=== PATIENT | male | born 1945 | race Caucasian/White ===

== ENCOUNTER 2016-11-10 11:12 | Outpatient (CLI) | payer MEDICARE, OTHER ==
[2016-11-10 18:11] LABS: BASOPHILS % (AUTO) 0.6 %; EOSINOPHILS # (AUTO) 0.1 10^3/uL (0.0-0.7); EOSINOPHILS % (AUTO) 2.1 %; HCT - HEMATOCRIT 45.5 % (42.0-52.0); HGB - HEMOGLOBIN 15.4 g/dL (14.0-18.0); LYMPHOCYTES # (AUTO) 1.3 10^3/uL (1.5-3.5); LYMPHOCYTES % (AUTO) 19.3 %; MEAN CORPUSCULAR HEMOGLOBIN 31.4 pg (27.0-31.0); MEAN CORPUSCULAR HGB CONC 33.9 g/dL (32.0-36.0); MEAN CORPUSCULAR VOLUME 92.4 fL (80.0-94.0); MEAN PLATELET VOLUME 8.7 fL (7.4-11.4); MONOCYTES # (AUTO) 0.7 10^3/uL (0.0-1.0); MONOCYTES % (AUTO) 10.4 %; NEUTROPHILS # (AUTO) 4.5 10^3/uL (1.5-6.6); NEUTROPHILS % (AUTO) 67.6 %; NUCLEATED RED BLOOD CELLS AUTO 0.1 /100WBC; RED BLOOD COUNT 4.93 10^6/uL (4.70-6.10); RED CELL DISTRIBUTION WIDTH 12.6 % (12.0-15.0); UNCORRECTED WHITE BLOOD COUNT 6.7 x10^3/uL; WHITE BLOOD COUNT 6.7 x10^3/uL (4.8-10.8)
[2016-11-10 18:57] LABS: IRON 131 ug/dL (45-182); TOTAL IRON BINDING CAPACITY 371 ug/dL (250-450); TRANSFERRIN 265 mg/dL (180-329)
== END 2016-11-10 11:13 | disposition home or self-care (01) ==
LOC: LAB.S 11:12
PROVIDERS: ATTEND Internal Medicine
DX: D50.0 Iron deficiency anemia secondary to blood loss (chronic) (principal)
CPT/HCPCS: 36415; 82728; 83540; 84466; 85025

== ENCOUNTER 2020-08-30 10:30 | Outpatient (CLI) | payer MEDICARE, OTHER | END 2020-08-30 23:59 | disposition home or self-care (01) | LOC: COV 10:30 | PROVIDERS: ATTEND Orthopaedic Surgery Orthopaedic Trauma | DX: Z01.812 Encounter for preprocedural laboratory examination (principal); M16.11 Unilateral primary osteoarthritis, right hip; Z20.822 Contact with and (suspected) exposure to COVID-19 ==

== ENCOUNTER 2023-01-09 05:00 | Outpatient (CLI) | payer MEDICARE, OTHER | END 2023-01-09 05:01 | disposition critical access hospital (66) | LOC: EMS 05:00 | DX: R07.9 Chest pain, unspecified (principal); R05.9 Cough, unspecified; R09.3 Abnormal sputum | CPT/HCPCS: A0425; A0427 ==

== ENCOUNTER 2023-01-09 05:28 | Emergency (ER) | payer MEDICARE, OTHER ==
--- NOTE | 2023-01-09 05:45 | ED Physician Documentation ---
History of Present Illness - Stated complaint Stated Complaint: CP - History obtained from History obtained from: Patient, EMS - Additonal information Additional information: 77yM with pmh [place] s/p LAD stent [facility] ([address] Reji Triana) p/w chest pain starting at 3:30am, worse with inspiration and movement, not improved with sublingual nitro. patient also endorses 2 weeks of uri symptoms progressing to chest congestion with cough productive of green sputum. he did have fever but states it resolved a couple days ago. Review of Systems Constitutional: reports: Fatigue. denies: Fever Nose: reports: Rhinorrhea / runny nose, Congestion Cardiac: reports: Chest pain / pressure Respiratory: reports: Cough GI: denies: Abdominal Pain, Nausea PD PAST MEDICAL HISTORY - Present Medications Home Medications: Ambulatory Orders Medication Instructions Recorded Confirmed Aspirin 325 mg PO DAILY 08/30/18 08/30/18 Latanoprost 0.005% Ophth Drops 1 drops EACHEYE DAILY 08/30/18 08/30/18 [Xalatan Ophth Drops] Losartan Potassium [Cozaar] 100 mg PO DAILY 08/30/18 08/30/18 Simvastatin 1 tab PO DAILY 08/30/18 08/30/18 hydroCHLOROthiazide 1 tab PO DAILY 08/30/18 08/30/18 [Hydrochlorothiazide] metFORMIN [Glucophage] 500 mg PO BIDWM 08/30/18 08/30/18 Amox/Clav 875/125 [Augmentin 1 tablet PO Q12H 7 Days #14 tablet 01/09/23 875/125 Tab] Azithromycin [Zithromax Tri-Tae] 500 mg PO QDAC 5 Days #6 tablet 01/09/23 - Allergies Allergies/Adverse Reactions: Allergies Allergy/AdvReac Type Severity Reaction Status Date / Time No Known Drug Allergies Allergy Verified 08/30/18 16:03 PD ED PE NORMAL - Vitals Vital signs reviewed: Yes - General General: Alert and oriented X 3, No acute distress, Well developed/nourished - HEENT HEENT: Atraumatic - Neck Neck: Supple, no meningeal sign - Cardiac Cardiac: RRR - Respiratory Respiratory: No respiratory distress, Clear bilaterally - Abdomen Abdomen: Non tender, Non distended - Derm Derm: Normal color, Warm and dry Results - Vitals Vitals: Vital Signs - 24 hr 01/09/23 01/09/23 01/09/23 05:40 06:50 07:18 Temperature 36.1 C L Heart Rate 78 78 78 Respiratory 16 16 17 Rate Blood Pressure 128/62 128/62 135/66 H O2 Saturation 100 96 96 Oxygen O2 Source Room air - EKG (time done) 0532 EKG releavant findings:: EKG personally interpreted by author of this note. Relevant findings are: Rate: Rate (enter#) (85) Rhythm: NSR [place]: Normal Intervals: Normal [place] QRS: Normal Ischemia: Normal ST segments, Q waves (inferior leads) - Labs Labs: Laboratory Tests 01/09/23 01/09/23 01/09/23 05:46 05:46 07:07 WBC 13.8 H RBC 4.53 L Hgb 13.6 L Hct 42.5 MCV 93.8 MCH 30.0 MCHC 32.0 RDW 13.0 Plt Count 264 MPV 8.9 Neut # (Auto) 11.7 H Lymph # (Auto) 0.8 L [place] # (Auto) 1.1 H Eos # (Auto) 0.1 Baso # (Auto) 0.1 Absolute Nucleated RBC 0.00 Nucleated RBC % 0.0 Sodium 137 Potassium 3.9 Chloride 103 Carbon Dioxide 28 Anion Gap 6.0 BUN 18 Creatinine 1.0 Estimated GFR (MDRD) 72 L Glucose 130 H Calcium 9.5 Total Bilirubin 0.4 AST 18 ALT 14 Alkaline Phosphatase 75 Troponin I High Sens 4.6 5.3 Total Protein 6.6 Albumin 3.6 Globulin 3.0 Albumin/Globulin Ratio 1.2 Lipase 49 PD Medical Decision Making - ED course ED course: 77-year-old man with history of coronary artery disease status post LAD stent presents with atypical chest pain starting at 3:30 AM upon waking, as well as URI symptoms for the past 2 weeks with productive cough and chest congestion. CBC, abdominal panel, troponin, EKG, chest x-ray ordered. labwork remarkable for leukocytosis 13.6. two sets of troponins negative. CXR showed LLL pneumonia. Electronic prescription sent to pharmacy. Return precautions given. Plan to follow-up with primary care provider. Departure - Departure Disposition: 01 Home, Self Care Clinical Impression: Pneumonia Condition: Stable Instructions: ED Pneumonia Adult Prescriptions: Amox/Clav 875/125 [Augmentin 875/125 Tab] 1 tablet PO Q12H 7 Days #14 tablet Azithromycin [Zithromax Tri-Tae] 500 mg PO QDAC 5 Days #6 tablet Comments: You were seen in the emergency department for Pneumonia. Electronic prescription sent to [facility] in [place]. For antibiotics. Please follow-up with your primary care provider and return to the emergency department if you have any new or worsening symptoms or other concerns. Forms: PCP List
[2023-01-09 06:06] LABS: BASOPHILS # (AUTO) 0.1 10^3/uL (0.0-0.1); BASOPHILS % (AUTO) 0.5 %; EOSINOPHILS # (AUTO) 0.1 10^3/uL (0.0-0.7); EOSINOPHILS % (AUTO) 0.9 %; HCT - HEMATOCRIT 42.5 % (42.0-52.0); HGB - HEMOGLOBIN 13.6 g/dL (14.0-18.0); LYMPHOCYTES # (AUTO) 0.8 10^3/uL (1.5-3.5); LYMPHOCYTES % (AUTO) 5.5 %; MEAN CORPUSCULAR VOLUME 93.8 fL (80.0-94.0); MEAN PLATELET VOLUME 8.9 fL (7.4-11.4); MONOCYTES # (AUTO) 1.1 10^3/uL (0.0-1.0); NEUTROPHILS # (AUTO) 11.7 10^3/uL (1.5-6.6); NEUTROPHILS % (AUTO) 84.7 %; PLT - PLATELET COUNT 264 10^3/uL (130-450); RED BLOOD COUNT 4.53 10^6/uL (4.70-6.10); WHITE BLOOD COUNT 13.8 x10^3/uL (4.8-10.8)
[2023-01-09 06:15] LABS: ALBUMIN 3.6 g/dL (3.2-5.5); ALBUMIN/GLOBULIN RATIO 1.2 (1.0-2.2); BILIRUBIN,TOTAL 0.4 mg/dL (0.2-1.0); CALCIUM 9.5 mg/dL (8.5-10.3); POTASSIUM 3.9 mmol/L (3.5-4.5); TOTAL PROTEIN 6.6 g/dL (6.4-8.9)
[2023-01-09 06:21] LABS: TROPONIN I HIGH SENSITIVITY 4.6 ng/L (2.3-19.7)
[2023-01-09 06:55] VITALS: O2SAT 96
[2023-01-09] MEDS ORDERED: AZITHROMYCIN INJ 500 MG in SODIUM CHLORIDE 0.9% 250 ML IV STA (08:00)
[2023-01-09] MEDS ORDERED: cefTRIAXone 2 GM in SODIUM CHLORIDE 0.9% MINIBAG 100 ML IV STA (08:00)
--- NOTE | 2023-01-09 08:35 | XRAY Report ---
PROCEDURE: Chest 1 View X-Ray INDICATIONS: Chest Pain TECHNIQUE: One view of the chest was acquired. COMPARISON: CT abdomen and pelvis, 05/23/2015. FINDINGS: Surgical changes and devices: None. Lungs and pleura: Bibasilar infiltrate or atelectasis. No pleural effusions or pneumothorax. Lungs are clear. Mediastinum: Mediastinal contours appear normal. Heart size is normal. Suspect a moderate size hiat al hernia. Bones and chest wall: No suspicious bony lesions. Overlying soft tissues appear unremarkable. IMPRESSION: Bibasilar infiltrates or atelectasis. Findings are concordant with preliminary interpretation provided by [facility]. Reviewed by: Marcela Velázquez MD on 01/09/2023 8:33 AM PST Approved by: Marcela Velázquez MD on 01/09/2023 8:33 AM PST Station ID: [id number]
[2023-01-09 10:29] VITALS: BP 127/63
== END 2023-01-09 10:20 | disposition home or self-care (01) ==
LOC: EDUNIT# → ED 05:28
DX: J18.9 Pneumonia, unspecified organism (principal)
CPT/HCPCS: 36415; 80053; 83690; 84484; 85025; 93005; 96365; 96367; 99284

== ENCOUNTER 2023-07-29 11:07 | Emergency (ER) | payer MEDICARE, OTHER ==
[2023-07-29 11:30] LABS: BASOPHILS % (AUTO) 0.6 %; EOSINOPHILS # (AUTO) 0.1 10^3/uL (0.0-0.7); EOSINOPHILS % (AUTO) 2.2 %; HCT - HEMATOCRIT 41.9 % (42.0-52.0); HGB - HEMOGLOBIN 13.7 g/dL (14.0-18.0); LYMPHOCYTES # (AUTO) 1.4 10^3/uL (1.5-3.5); LYMPHOCYTES % (AUTO) 22.2 %; MEAN CORPUSCULAR HEMOGLOBIN 29.7 pg (27.0-31.0); MEAN CORPUSCULAR HGB CONC 32.7 g/dL (32.0-36.0); MEAN CORPUSCULAR VOLUME 90.7 fL (80.0-94.0); MEAN PLATELET VOLUME 9.1 fL (7.4-11.4); MONOCYTES # (AUTO) 0.8 10^3/uL (0.0-1.0); MONOCYTES % (AUTO) 12.8 %; PLT - PLATELET COUNT 225 10^3/uL (130-450); RED BLOOD COUNT 4.62 10^6/uL (4.70-6.10); RED CELL DISTRIBUTION WIDTH 12.5 % (12.0-15.0); WHITE BLOOD COUNT 6.4 x10^3/uL (4.8-10.8)
[2023-07-29 11:46] LABS: ALBUMIN/GLOBULIN RATIO 1.4 (1.0-2.2); BILIRUBIN,TOTAL 0.6 mg/dL (0.2-1.0); CALCIUM 9.9 mg/dL (8.5-10.3); POTASSIUM 3.6 mmol/L (3.5-4.5); TOTAL PROTEIN 6.9 g/dL (6.4-8.9)
[2023-07-29 11:49] LABS: TROPONIN I HIGH SENSITIVITY 4.6 ng/L (2.3-19.7)
--- NOTE | 2023-07-29 12:00 | XRAY Report ---
PROCEDURE: Chest 1V INDICATIONS: Chest pain TECHNIQUE: One view of the chest was acquired. COMPARISON: Chest x-ray 01/09/2023 FINDINGS: Surgical changes and devices: None. Lungs and pleura: No pleural effusions or pneumothorax. Lungs are clear. Mediastinum: Mediastinal contours appear normal. Heart size is enlarged. Bones and chest wall: No suspicious bony lesions. Overlying soft tissues appear unremarkable. IMPRESSION: No acute cardiopulmonary process. Reviewed by: Damari Rubio MD on 07/29/2023 11:58 AM PDT Approved by: Damari Rubio MD on 07/29/2023 11:58 AM PDT Station ID: [id number]
--- NOTE | 2023-07-29 12:09 | ED Physician Documentation ---
PD HPI CHEST PAIN - Stated complaint Stated Complaint: CHEST PX - Chief complaint Chief Complaint: Cardiac - History obtained from History obtained from: Patient, Family - History of Present Illness Timing - onset: How many hours ago (2) Pain level max: 3 Pain level now: 3 Quality: Pressure, Tightness Location: Substernal Radiation: No: Jaw, Neck, Back, Abdominal, Left upper extremity, Right upper extremity Improved by: Nothing Worsened by: No: Exertion, Inspiration, Movement Associated symptoms: No: Shortness of air, Diaphoresis, Nausea, Vomiting, General Weakness, Palpitations - Additional information Additional information: Patient is a 77-year-old male who presents to the emergency department with chest pain that started this morning while having a "heated conversation" with his . He states they are under a large amount of stress as they are refinishing the floors in their home. He states that the pain gradually builds over about 10 minutes, he took nitroglycerin and aspirin, pain subsided for a few minutes, then returned. He states that the pain has now resolved. Entire episode lasted about 30 to 40 minutes. Tamiment like a pressure. No nausea or vomiting. He states he has a history of stents to the LAD in 2010. He recently underwent a hiatal hernia repair at the [facility]. The symptoms did not change with exertion, inspiration. Review of Systems Constitutional: denies: Fever, Chills Respiratory: denies: Cough GI: denies: Nausea, Vomiting, Diarrhea Musculoskeletal: denies: Neck pain, Back pain Neurologic: denies: Headache PD PAST MEDICAL HISTORY - Past Medical History Past Medical History: Yes Cardiovascular: Hypertension, High cholesterol, [place] Respiratory: COPD Endocrine/Autoimmune: None GI: Ulcers, Hiatal hernia : Other Psych: None Musculoskeletal: None Derm: None - Past Surgical History Past Surgical History: Yes General: Hiatal hernia repair Ortho: Hip replacement Cardiovascular: Coronary stent - Present Medications Home Medications: Ambulatory Orders Medication Instructions Recorded Confirmed Aspirin 325 mg PO DAILY 08/30/18 08/30/18 Latanoprost 0.005% Ophth Drops 1 drops EACHEYE DAILY 08/30/18 08/30/18 [Xalatan Ophth Drops] Losartan Potassium [Cozaar] 100 mg PO DAILY 08/30/18 08/30/18 Simvastatin 1 tab PO DAILY 08/30/18 08/30/18 hydroCHLOROthiazide 1 tab PO DAILY 08/30/18 08/30/18 [Hydrochlorothiazide] metFORMIN [Glucophage] 500 mg PO BIDWM 08/30/18 08/30/18 Amox/Clav 875/125 [Augmentin 1 tablet PO Q12H 7 Days #14 tablet 01/09/23 875/125 Tab] Azithromycin [Zithromax Tri-Tae] 500 mg PO QDAC 5 Days #6 tablet 01/09/23 - Allergies Allergies/Adverse Reactions: Allergies Allergy/AdvReac Type Severity Reaction Status Date / Time No Known Drug Allergies Allergy Verified 07/29/23 11:11 - Social History Does the pt smoke?: No Smoking Status: Never smoker Does the pt drink ETOH?: Yes ETOH Use: Liquor Does the pt have substance abuse?: Yes Substance Use and Type: Marijuana - Immunizations Immunizations are current?: Yes - POLST Patient has POLST: No PD ED PE NORMAL - Vitals Vital signs reviewed: Yes - General General: Alert and oriented X 3, No acute distress - HEENT HEENT: Moist mucous membranes - Neck Neck: Supple, no meningeal sign - Cardiac Cardiac: RRR, Strong equal pulses - Respiratory Respiratory: No respiratory distress, Clear bilaterally - Abdomen Abdomen: Soft, Non tender, Non distended - Derm Derm: Warm and dry - Extremities Extremities: No edema, No calf tenderness / cord - Neuro Neuro: Alert and oriented X 3 - Psych Psych: Normal mood, Normal affect Results - Vitals Vitals: Vital Signs - 24 hr 07/29/23 07/29/23 07/29/23 11:11 12:16 12:46 Temperature 36.4 C L Heart Rate 52 L 56 L 50 L Respiratory 16 13 12 Rate Blood Pressure 197/74 H 150/79 H 155/76 H O2 Saturation 99 96 97 07/29/23 07/29/23 07/29/23 13:16 13:46 14:16 Temperature Heart Rate 51 L 49 L 49 L Respiratory 17 17 14 Rate Blood Pressure 127/89 H 135/73 H 150/68 H O2 Saturation 97 98 97 07/29/23 14:30 Temperature Heart Rate 48 L Respiratory 16 Rate Blood Pressure 150/73 H O2 Saturation 98 Oxygen O2 Source Room air - EKG (time done) 1119 EKG releavant findings:: EKG personally interpreted by author of this note. Relevant findings are: Rate: Rate (enter#) (60) Rhythm: NSR [place]: Normal Intervals: Normal [place] QRS: Normal Ischemia: Normal ST segments, Q waves (V1-2, III, aVF) - Labs Labs: Laboratory Tests 07/29/23 07/29/23 07/29/23 11:25 11:25 13:32 WBC 6.4 RBC 4.62 L Hgb 13.7 L Hct 41.9 L MCV 90.7 MCH 29.7 MCHC 32.7 RDW 12.5 Plt Count 225 MPV 9.1 Neut # (Auto) 4.0 Lymph # (Auto) 1.4 L [place] # (Auto) 0.8 Eos # (Auto) 0.1 Baso # (Auto) 0.0 Absolute Nucleated RBC 0.00 Nucleated RBC % 0.0 Sodium 137 Potassium 3.6 Chloride 101 Carbon Dioxide 30 Anion Gap 6.0 BUN 18 Creatinine 1.0 Estimated GFR (MDRD) 72 L Glucose 127 H Calcium 9.9 Total Bilirubin 0.6 AST 20 ALT 18 Alkaline Phosphatase 69 Troponin I High Sens 4.6 5.0 Total Protein 6.9 Albumin 4.0 Globulin 2.9 Albumin/Globulin Ratio 1.4 Lipase 55 - Rads (name of study) cxr Relevant Findings:: Final report received, See rad report PD Medical Decision Making - ED course Complexity details: reviewed results, re-evaluated patient, considered differential (No ST elevation [place], no aortic dissection, no PE, no tension pneumothorax, no aortic aneurysm), d/w patient ED course: 77-year-old male with chest pain today during an argument. Asymptomatic here. Negative high sensitive troponin x 2. No acute findings on EKG. Chest pain was not exertional. He has not had a recent cardiac stress test, recommend that he do this with his primary care provider. He has remained pain-free in the emergency department. No fevers. No chills. No cough or congestion. No acute findings on chest x-ray. We will have him continue his current medications and follow-up with his doctor. Patient counseled regarding signs and symptoms for which I believe and urgent re-evaluation would be necessary. Patient with good understanding of and agreement to plan and is comfortable going home at this time This document was made in part using voice recognition software. While efforts are made to proofread this document, sound alike and grammatical errors may occur. Departure - Departure Disposition: Home, Self Care Clinical Impression: Chest pain Qualifiers: Chest pain type: unspecified Qualified Code(s): R07.9 - Chest pain, unspecified Condition: Good Instructions: ED Chest Pain Atypical Unkn Cause Follow-Up: Thierno Gamez MD [Primary Care Provider] - Comments: Please follow-up with your doctor for further care. Please continue your medications at home. There is no evidence of heart attack today. It is recommended that you have a cardiac stress test scheduled urgently with your doctor. Please contact your doctor today or tomorrow for a follow-up appointment and a stress test. Please return if you worsen. Forms: PCP List Discharge Date/Time: 07/29/23 14:52
[2023-07-29 14:57] VITALS: BP 150/73; O2SAT 98
== END 2023-07-29 14:52 | disposition home or self-care (01) ==
LOC: ED 11:07
DX: R07.9 Chest pain, unspecified (principal); I10 Essential (primary) hypertension; E78.00 Pure hypercholesterolemia, unspecified; J44.9 Chronic obstructive pulmonary disease, unspecified; I25.2 Old myocardial infarction; Z79.899 Other long term (current) drug therapy; Z79.82 Long term (current) use of aspirin; Z79.84 Long term (current) use of oral hypoglycemic drugs
CPT/HCPCS: 36415; 80053; 83690; 84484; 85025; 93005; 99284